=== PATIENT | male | born 1985 | race Caucasian/White ===

== ENCOUNTER → 2016-08-22 | Outpatient (CLI) | payer BC, SELFPAY ==
--- NOTE | 2016-08-22 10:03 | RAD ---
EXAM DESCRIPTION: Abdomen radiography. CLINICAL HISTORY: Abdominal pain. COMPARISON: None. TECHNIQUE: Two views. FINDINGS: Bowel gas pattern is non-obstructed. There is no obvious free intraperitoneal air. Visualized segments of the abdominal organs are unremarkable. No suspicious bone lesion or fracture is seen. IMPRESSION: No significant abnormality. Electronically signed by: Ulysses Beaver MD 08/22/2016 10:02
--- NOTE | 2016-08-22 10:05 | RAD ---
EXAM DESCRIPTION: XR CHEST 2 VIEWS CLINICAL HISTORY: REFLUX COMPARISON: None Available. TECHNIQUE: PA/lateral FINDINGS: There is no cardiac or pulmonary abnormality. The lungs are clear. There is no effusion. IMPRESSION: No acute findings on today's study. Electronically signed by: Ulysses Beaver MD 08/22/2016 10:03
== END ==
LOC: RAD 08:10
PROVIDERS: ATTEND Nurse Practitioner Family
DX: R11.10 Vomiting, unspecified (principal); K21.0 Gastro-esophageal reflux disease with esophagitis

== ENCOUNTER → 2016-08-24 | Outpatient (CLI) | payer BC ==
--- NOTE | 2016-08-24 11:36 | US ---
EXAM DESCRIPTION: US GALLBLADDER CLINICAL HISTORY: ABDOMINAL PAIN COMPARISON: AP supine abdomen dated 22 August 2016. TECHNIQUE: Right upper quadrant ultrasound FINDINGS: Hepatic steatosis is observed. No focal mass is identified There is no intrahepatic bile duct dilatation. The common bile duct measures 4.7mm. The gallbladder is normal and contains no stones. The pancreas has a normal appearance. The upper abdominal aorta and the inferior vena cava are unremarkable. The right kidney is normal in size, shape, and echotexture. IMPRESSION: Hepatic steatosis otherwise unremarkable gallbladder sonography. Electronically signed by: Owen Jackson MD 08/24/2016 11:35
== END ==
LOC: US 08:34
PROVIDERS: ATTEND Emergency Medicine
DX: R10.9 Unspecified abdominal pain (principal); K76.0 Fatty (change of) liver, not elsewhere classified

== ENCOUNTER → 2016-10-20 | Outpatient (CLI) | payer BC ==
--- NOTE | 2016-10-20 09:54 | CT ---
EXAM DESCRIPTION: Abdomen/Pelvis w/wo Contrast CLINICAL HISTORY: ABDOMINAL PAIN COMPARISON: None. TECHNIQUE: CT of the abdomen and pelvis was performed prior to and after the administration of IV contrast.. Multiple axial images and multiplanar reconstructions were generated. FINDINGS: Lung bases: The visualized lung bases are clear. Solid organs: The liver, spleen, pancreas, kidneys, and adrenal glands are normal. Gastrointestinal: The stomach, small intestine, and large intestine are normal. Gallbladder is unremarkable. The appendix is normal. No free fluid or free air. Vascular: Normal. Lymph nodes: Mediastinal lymph nodes along with groundglass within the mesentery noted. Musculoskeletal and soft tissues: No destructive osseous lesions are present. Urinary bladder and pelvic organs: The urinary bladder is normal. IMPRESSION: 1. Today's exam demonstrates Kerry changes within the mesentery along with a few prominent lymph nodes. While this can be a normal variant it can also be associated with mesenteric adenitis and significantly less likely, lymphoma. Recommend six month follow-up to help establish stability of these likely benign lymph nodes. Electronically signed by: Ulysses Beaver MD 10/20/2016 9:53 AM CDT
--- NOTE | 2016-10-20 11:54 | NM ---
EXAM DESCRIPTION: Nuclear medicine-Hepatobiliary w/CCK CLINICAL HISTORY: ABDOMINAL PAIN COMPARISON: None Available. RADIOPHARMACEUTICAL: 7.0 mCi technetium 99 M mebrofenin IV FINDINGS: There is prompt appropriate accumulation of the radiopharmaceutical by the liver with excretion into the biliary ductal system, gallbladder, and small bowel in and appropriate time frame. Gallbladder ejection fraction is assessed over 30 min time period following fatty meal ingestion and shows a gallbladder ejection fraction of 78%. IMPRESSION: Normal hepatobiliary study and gallbladder ejection fraction Electronically signed by: Marck Olivarez MD 10/20/2016 11:53 AM CDT
== END | disposition home or self-care (01) ==
LOC: NM 07:15
PROVIDERS: ATTEND Emergency Medicine
DX: R10.9 Unspecified abdominal pain (principal)

== ENCOUNTER → 2017-03-13 | Outpatient (CLI) | payer BC | LOC: LAB.O 08:21 | DX: K21.9 Gastro-esophageal reflux disease without esophagitis (principal); E66.9 Obesity, unspecified ==

== ENCOUNTER → 2017-06-14 | Outpatient (CLI) | payer BC ==
--- NOTE | 2017-06-16 08:13 | RAD ---
EXAM DESCRIPTION: Thoracic Spine,AP Lateral CLINICAL HISTORY: 31 years Male, BACK PAIN COMPARISON: None. FINDINGS: Three views of the thoracic spine demonstrate normal alignment with preservation of vertebral and disc height. No destructive process or paraspinous mass is noted. Additional abnormalities are not apparent. IMPRESSION: Essentially normal dorsal spine three views. Electronically signed by: Vitaly Rouse MD 06/16/2017 8:12 AM STRUCTURAL MANAGER
== END | disposition home or self-care (01) ==
LOC: RAD 13:05
PROVIDERS: ATTEND Emergency Medicine
DX: M54.5 Low back pain (principal); M54.6 Pain in thoracic spine

== ENCOUNTER → 2017-06-26 | Outpatient (CLI) | payer BC ==
--- NOTE | 2017-06-27 15:50 | MRI ---
EXAM DESCRIPTION: Thoracic Spine w/o Contrast: MRI CLINICAL HISTORY: BACK PAIN COMPARISON: Thoracic spine radiographs 06/14/2017. TECHNIQUE: Multiplanar, multiple standard sequences, non contrast MRI, thoracic spine. FINDINGS: Left posterior T5-6 disc is desiccated and protruding 3 mm abutting the cord and the exiting left L5 nerve. Left paracentral near canal stenosis. Right posterior T4-5 disc bulge and spur encroaching on the right foramen and abutting the right T4 nerve. Desiccation of the T7-8 and T8-9 discs with posterior midline bulge abutting the cord. Annular fissure in the T8-9 disc. Disc desiccation T10-11 disc with posterior midline bulge abutting the cord. No significant foraminal or canal stenosis. Remaining discs are unremarkable. Schmorl's nodes in the endplates from T5-6 to T8-9. Normal marrow signal in the vertebral bodies and the posterior elements. Minimal anterior wedging at T10. No abnormal marrow edema in the vertebral body or posterior elements. Remaining discs demonstrate normal signal. Disc spaces are preserved. Canal and foramina are patent. No scoliosis. Facet joints are unremarkable. Conus termination level not on the study. Paravertebral soft tissues are unremarkable. Normal marrow signal in the vertebral bodies and the posterior elements. Vertebral bodies are not compressed at any level. IMPRESSION: 1. Left posterior protrusion T5-6 disc abutting the exiting left T5 nerve. 2. Right posterior disc protrusion or endplate spurs at L4-5 abutting the exiting right T4 nerve. 3. Desiccation and bulging at T7-8 and T8-9 and T10-11 discs. Annular fissure at T8-9. These discs are abutting the cord. Electronically signed by: Gilbert Quinn MD 06/27/2017 3:49 PM [facility]
== END ==
LOC: MRI 14:00
PROVIDERS: ATTEND Emergency Medicine
DX: M51.24 Other intervertebral disc displacement, thoracic region (principal)

== ENCOUNTER 2017-07-17 15:06 | Emergency (ER) | payer BC ==
[2017-07-17 15:30] VITALS: TEMP 99
[2017-07-17] MEDS ORDERED: SODIUM CHLORIDE 0.9% 1000ML 1,000 ML IVS ONE (15:32)
--- NOTE | 2017-07-17 15:37 | ED.PDOC ---
History of Present Illness - General Chief Complaint: Abdominal Pain Stated Complaint: abdominal pain Time Seen by Provider: 07/17/17 15:27 Information Source: patient Exam Limitations: no limitations - History of Present Illness Initial Comments: Duarte Villela 31 y/o male stated that he had onset of sharp luq pain about an hour ago and felt dry heaving ate lunch this afternoon no hematuria or dysuria, no hematemesis,no blood in stool. Abdominal Pain Onset Location: LUQ Pain Radiation: no radiation Quality: sharpness Timing/Duration: 1-3 hours Improving Factors: nothing Worsening Factors: nothing Associated Symptoms: other - see hpi Review of Systems - Review of Systems Constitutional: States: no symptoms reported EENTM: States: no symptoms reported Respiratory: States: no symptoms reported Cardiology: States: no symptoms reported Gastrointestinal/Abdominal: States: abdominal pain Genitourinary: States: no symptoms reported Musculoskeletal: States: no symptoms reported All other Systems: Reviewed and Negative, No Change from Baseline Past Medical History (General) - Patient Medical History Hx Gastroesophageal Reflux: Yes Surgical History: other - gastric fundoplication - Vaccination History Hx Tetanus, Diphtheria Vaccination: No Hx Influenza Vaccination: No Hx Pneumococcal Vaccination: No - Social History Hx Tobacco Use: No Hx Alcohol Use: No Hx Substance Use: No Hx Substance Use Treatment: No Hx Depression: No Family Medical History - Family History Mother Hx Family Diabetes: Yes - multiple family members Physical Exam - Physical Exam General Appearance: Alert, Comfortable, No apparent distress Eyes, Ears, Nose, Throat Exam: PERRL/EOMI, normal ENT inspection Neck: non-tender, full range of motion, supple Respiratory: chest non-tender, lungs clear, normal breath sounds Cardiovascular/Chest: normal peripheral pulses, regular rate, rhythm, no edema, no murmur Peripheral Pulses: No deficit Gastrointestinal/Abdominal: normal bowel sounds, soft, no organomegaly, tenderness - luq no peritoneal signs Male Genitalia: no hernia Back Exam: no CVA tenderness, no vertebral tenderness Extremity: normal range of motion, non-tender, normal inspection, no pedal edema Progress - Progress Progress: 07/17/17 17:25 Last Vital Signs Temp 99.0 F 07/17/17 15:27 Pulse 72 07/17/17 15:27 Resp 20 07/17/17 15:27 BP 160/101 07/17/17 15:27 Pulse Ox 95 07/17/17 15:27 - Results/Orders Results/Orders: Laboratory Tests 07/17/17 07/17/17 07/17/17 15:41 15:41 16:50 WBC 15.4 H RBC 5.74 Hgb 16.4 Hct 48.6 MCV 84.8 MCH 28.6 MCHC 33.7 RDW 14.3 Plt Count 304 MPV 7.7 Absolute Neuts (auto) 11.00 H Absolute Lymphs (auto) 3.20 Absolute Monos (auto) 0.80 Absolute Eos (auto) 0.30 Absolute Basos (auto) 0.20 H Neutrophils % 71.3 Lymphocytes % 20.5 Monocytes % 5.1 Eosinophils % 1.7 Basophils % 1.4 Sodium 142 Potassium 3.9 Chloride 104 Carbon Dioxide 28 Anion Gap 13.9 BUN 13 Creatinine 0.98 BUN/Creatinine Ratio 13.3 Random Glucose 108 H Serum Osmolality 283.8 Calcium 8.8 Total Bilirubin 0.3 AST 24 ALT 34 Alkaline Phosphatase 94 Serum Total Protein 7.1 Albumin 3.9 Globulin 3.2 Albumin/Globulin Ratio 1.2 Lipase 38 Urine Color Yellow Urine Appearance Clear Urine pH 6.0 Ur Specific [place] 1.010 Urine Protein Negative Urine Glucose (UA) Negative Urine Ketones Negative Urine Blood Negative Urine Nitrite Negative Urine Bilirubin Negative Urine Urobilinogen 0.2 Ur Leukocyte Esterase Negative Urine RBC 0-1 Urine WBC 0 Ur Epithelial Cells 0 Urine Bacteria 0 - EKG/XRAY/CT XRAY: chest - no acute abnormalities CT Ordered: Yes - abd /pelvis no acute findings Departure - Departure Clinical Impression: Abdominal pain Qualifiers: Abdominal location: left upper quadrant Qualified Code(s): R10.12 - Left upper quadrant pain Time of Disposition: 17:27 Disposition: Discharge to Home or Self Care Departure Forms: ED Discharge - Pt. Copy, Patient Portal Self Enrollment Instructions: DI for Abdominal Pain-Adult Diet: other - AVOID GREASY SPICY FOODS UNTIL BETTER Referrals: JUSTINA LORD [Primary Care Provider] - 1-2 Weeks Prescriptions: Promethazine W/Codeine Syr [Phenergan With Codeine Syrup] 10 ml PO Q6HRS PRN # 120 ml PRN Reason: Pain Home Medications: Ambulatory Orders Promethazine W/Codeine Syr [Phenergan With Codeine Syrup] 10 ml PO Q6HRS PRN # 120 ml 07/17/17
--- NOTE | 2017-07-17 16:03 | RAD ---
EXAM DESCRIPTION: Abdomen Flat Upright CLINICAL HISTORY: 31 years Male, pain COMPARISON: None. FINDINGS: Supine and erect views of the abdomen demonstrate a normal bowel gas pattern. A small air-fluid level within the stomach is noted. The lung bases are clear. No unusual calculi or soft tissue masses are seen. The bony spine and pelvis are unremarkable. IMPRESSION: Normal abdomen two views. Electronically signed by: Vitaly Rouse MD 07/17/2017 4:02 PM SEAPORT PLANNING MANAGER
--- NOTE | 2017-07-17 16:04 | RAD ---
EXAM DESCRIPTION: Chest,1 View CLINICAL HISTORY: 31 years Male, pain COMPARISON: None. TECHNIQUE: AP portable chest. FINDINGS: Fair expansion of the lungs is evident without consolidation, layering effusion, or large mass. Heart size and vascularity appear normal for AP technique and degree of inspiration. No gross bony, hilar, or mediastinal abnormalities are noted. IMPRESSION: Normal chest, one view Electronically signed by: Vitaly Rouse MD 07/17/2017 4:02 PM ENAMEL DIPPER
--- NOTE | 2017-07-17 17:12 | CT ---
PROCEDURE: Abdomen/Pelvis w/Contrast HISTORY: pain Indication: Same as above Comparison: 10/20/2016 . Technique: CT of the abdomen and pelvis was done with intravenous contrast. Images were obtained from the lung base to the level of the pubic symphysis in axial plane, followed by orthogonal sagittal and coronal reconstruction. Oral contrast was not given for the study. The patient was injected with contrast intravenously, without any documented immediate adverse reactions. This exam was performed according to our departmental dose-optimization program, which includes automated exposure control, adjustment of the mA and/or KV according to the patient's size and/or use of iterative reconstruction technique. FINDINGS: Images through the lung bases do not show any focal infiltrates or pleural effusions. The liver, gallbladder, pancreas, spleen and the bilateral adrenal glands appear unremarkable. The bilateral kidneys enhance with contrast in a normal fashion. The urinary bladder is unremarkable . The bilateral ureters and the bilateral periureteral soft tissues and fat planes are unremarkable. Note is again made of stable benign panniculitis in the root of the mesentery The small bowel appears unremarkable, without any evidence of small bowel obstruction or bowel wall thickening. There is no CT evidence of acute appendicitis, pericecal inflammatory change or ileocecal mesenteric adenitis. The ileocecal junction appears unremarkable. There is no CT evidence of acute colonic diverticulitis or colitis or large bowel obstruction. The splenic and portal veins are of normal caliber, without any filling defects. There is no pathological lymphadenopathy in the retroperitoneum or in the pelvic region. There is no evidence of free fluid or free air in the abdomen or the pelvic region. There is no clinically significant abdominal aortic aneurysm. There is no clinically significant inguinal or ventral hernia. The visualized lumbar spine shows minimal degenerative change . The paravertebral soft tissues are unremarkable. The remainder of the pelvic structures are unremarkable. IMPRESSION: There are no acute or significant findings on the current study. Location of Interpretation: Teleradiology Electronically signed by: Fabrice Salomon MD 07/17/2017 5:11 PM [facility] Workstation: [id number] [place] (MCTAS: [place])
[2017-07-17 18:02] VITALS: BP 146/93; O2SAT 96
== END 2017-07-17 17:52 | disposition home or self-care (01) ==
LOC: ER 15:06
DX: R10.12 Left upper quadrant pain (principal); K21.9 Gastro-esophageal reflux disease without esophagitis
CPT/HCPCS: 36415; 71010; 74010; 74177; 80053; 81001; 83690; 85025; J7030

== ENCOUNTER 2017-10-25 05:45 | Day surgery (SDC) | payer BC ==
[2017-10-25] MEDS ORDERED: LACTATED RINGERS 1,000 ML ONE (06:08)
[2017-10-25 08:31] VITALS: BP 112/70; TEMP 96; O2SAT 94
--- NOTE | 2017-10-25 08:31 | OP ---
DATE OF PROCEDURE: 10/25/17 PREOPERATIVE DIAGNOSIS: 1. Right lower quadrant pain. 2. Change in bowel habits. POSTOPERATIVE DIAGNOSIS: 1. Normal colonoscopy. PROCEDURE: 1. Colonoscopy. SURGEON: Basim Collier MD. ANESTHESIA: MAC. PROCEDURE: Informed consent was obtained prior to sedation. The preprocedure cardiopulmonary assessment was satisfactory. The patient was placed in the left lateral decubitus position and was sedated by the Anesthesia Team. The tip of the Olympus colonoscope was inserted in the rectum and guided through the entire colon under direct visualization. The ileocecal valve and appendiceal orifice appeared normal. The terminal ileum appeared normal. Slow withdrawal was started at this time. Colonoscopy prep was good. The colon appeared normal. Retroflexion view of the anorectal area showed no abnormality. The scope was then withdrawn from the patient and the procedure was terminated. COMPLICATIONS: None. ESTIMATED BLOOD LOSS: Zero. RECOMMENDATION: 1. Amitiza 8 mcg p.o. b.i.d. 2. Aggressive weight loss. 3. Watch for complications like bleeding, infection, fever, abdominal pain or other and attend the Emergency Room immediately. 4. Followup in my office in 4 weeks. #[id number] MTDRodriguez
[2017-10-25] MEDS ORDERED: PROPOFOL 200 MG/20 ML VIAL IV ONE (10:00)
[2017-10-25] MEDS ORDERED: LIDOCAINE 1% 10 ML VIAL INJ ONE (10:00)
== END 2017-10-25 08:55 | disposition home or self-care (01) ==
LOC: AMB 05:45
DX: R10.31 Right lower quadrant pain (principal); R19.4 Change in bowel habit; K21.9 Gastro-esophageal reflux disease without esophagitis; E66.9 Obesity, unspecified; Z68.35 Body mass index [BMI] 35.0-35.9, adult; Z79.899 Other long term (current) drug therapy
CPT/HCPCS: 00812; 45378; J3490; J7120

== ENCOUNTER → 2017-10-25 | Outpatient (CLI) | payer BC ==
--- NOTE | 2017-10-25 17:54 | US ---
Procedure: US ABDOMEN Exam Date: 10/25/2017 Ordering Provider: EDNA AMBRIZ Clinical Indication: RIGHT LOWER QUADRANT PAIN Comparison: 07/17/2017 CT abdomen pelvis Technique: Real-time ultrasonography was obtained over the abdominal viscera and medical claims representative images were recorded. Findings: The liver is normal in size and contour. There is diffuse increased echogenicity of the liver consistent with fatty infiltration. There are no intrahepatic masses. There is no intrahepatic ductal dilatation. The gallbladder is normal in size and appearance. There are no gallstones. There is no gallbladder wall thickening or pericholecystic fluid. The extrahepatic common duct is normal in size measuring 5.7 mm. The spleen is normal in size and contour. There is normal internal echogenicity of the spleen. There are no splenic masses. The visualized portions of the pancreas are normal. The aorta has a normal appearance. The right kidney is normal in size and contour. The right kidney measures 11.5 cm in bipolar length. Cortical thickness and echogenicity are normal. There are no masses, calculi, or hydronephrosis. The left kidney is normal in size and contour. The left kidney measures 12.0 cm in bipolar length. Cortical thickness and echogenicity are normal. There are no masses, calculi, or hydronephrosis. There is no ascites. Impression: 1. Hepatic steatosis, otherwise unremarkable exam. Electronically signed by: Duarte Renee MD 10/25/2017 5:51 PM CDT
== END ==
LOC: RAD 11:26
DX: K21.9 Gastro-esophageal reflux disease without esophagitis (principal); R10.12 Left upper quadrant pain; R10.31 Right lower quadrant pain; E66.9 Obesity, unspecified

== ENCOUNTER 2017-11-22 22:17 | Emergency (ER) | payer BC ==
[2017-11-22] MEDS ORDERED: ALUM & MAG HYDROX-SIMETHICONE 30 ML, LIDOCAINE VISCOUS 2% 15 ML PO ONE ×2 (22:33)
[2017-11-22 22:34] VITALS: TEMP 98.8
[2017-11-22] MEDS ORDERED: LIDOCAINE HCL 2% (MOUTH-THROAT) 15 ML UD ONE (22:56)
[2017-11-22] MEDS ORDERED: ALUM & MAG HYDROX-SIMETHICONE 30 ML UD ONE (22:56)
--- NOTE | 2017-11-22 23:20 | RAD ---
PROCEDURE: Abdomen Series Clinical History: acute sinus tachycardia Indication: Same as above Comparison: None Technique: 3.0 views of the abdomen and pelvis were done. In addition a single frontal view of the chest was done Findings: There is no gross evidence of free air in the abdomen or the pelvis . There are no discrete airspace infiltrates and pneumothoraces or pleural effusions. The cardiac mediastinal silhouette is unremarkable The small and large bowel gas pattern does not show any evidence of obstruction, ileus or bowel wall thickening. There is no visualization of radiopaque calculi in the outline of the urinary tract. There is mild constipation. Impression: There is mild constipation. There are no acute or significant findings in the chest Location of Interpretation: [id number] Electronically signed by: Fabrice Salomon MD 11/22/2017 11:19 PM CDT Workstation: [id number]
[2017-11-22] MEDS ORDERED: METOPROLOL TARTRATE 25 MG TAB PO ONE (23:45)
[2017-11-23] MEDS ORDERED: HYDROcodone 10MG/APAP 325MG 1 EA TAB PO ONE (00:25)
--- NOTE | 2017-11-23 00:29 | ED.PDOC ---
History of Present Illness - General Chief Complaint: Cardiovascular Problem Stated Complaint: heart racing Time Seen by Provider: 11/22/17 22:20 Source: patient Exam Limitations: no limitations - History of Present Illness Initial Comments: the patient is a 32-year-old male presenting to the emergency room secondary to a feeling of his heart racing a little bit. This started a couple of hours prior to arrival. He reports that he was sitting still when he noticed it first. He has not had any chest pain or shortness of breath. He reports at one point he had some very mild diaphoresis. Unusual things about today include that he had an epidural steroid injection with his chronic pain management doctor earlier in the day. Additionally he has taken one last dose of his hydrocodone that he normally does. He is not having any abdominal pain. Again no chest pain or shortness of breath. No leg pain. No swelling. No new back pain. No altered mental status. No weakness in his extremities. no headache fever or chills. No sore throat. No nausea or vomiting. No diarrhea. No runny nose.upon his arrival here he is in sinus tachycardia with a rate ranging from 115 bpm to 135 bpm. I do not have previous vital signs to compare to on this patient to know if this is unusual. No evidence of any other arrhythmia on telemetry monitoring. the patient does report that ever since he has had his 2 abdominal surgeries he has maintained a elevated white blood cell count. White blood cell count today is 12,000 which is apparently not unusual for him.he denies use of any stimulants. Timing/Duration: 1-3 hours Severity: mild Improving Factors: nothing Worsening Factors: nothing Associated Symptoms: diaphoresis Allergies/Adverse Reactions: Allergies NO KNOWN ALLERGY Allergy (Verified 07/17/17 15:30) Home Medications: Ambulatory Orders Cyclobenzaprine HCl [Flexeril] 5 mg PO PRN PRN 09/19/17 HYDROcodone 10MG/APAP 325MG [Anderson 10/325] 1 tablet PRN PRN 09/19/17 Review of Systems - Review of Systems Constitutional: States: diaphoresis - brief EENTM: States: no symptoms reported Respiratory: States: no symptoms reported Cardiology: States: palpitations. Denies: chest pain, edema, syncope Gastrointestinal/Abdominal: States: no symptoms reported Genitourinary: States: no symptoms reported Musculoskeletal: States: no symptoms reported Skin: States: no symptoms reported Neurological: States: no symptoms reported Endocrine: States: no symptoms reported All other Systems: No Change from Baseline Past Medical History (General) - Patient Medical History Hx Congestive Heart Failure: No Hx Hypertension: Yes Hx Diabetes: No Hx Gastroesophageal Reflux: Yes Hx MRSA: No - Vaccination History Hx Tetanus, Diphtheria Vaccination: No Hx Influenza Vaccination: No Hx Pneumococcal Vaccination: No Immunizations Up to Date: No - Social History Hx Tobacco Use: No Hx Alcohol Use: No Hx Substance Use: No Hx Substance Use Treatment: No Hx Depression: No Feels Threatened In Home Enviroment: No Feels Threatened In a Relationship: No Hx Physical Abuse: No Hx Emotional Abuse: No Hx Suspected Abuse: No - Female History Patient is a Female of Child Bearing Age (10 -59 yrs old): No Family Medical History - Family History Mother Family History: Unknown Hx Family Diabetes: Yes - multiple family members Physical Exam - Physical Exam General Appearance: Alert, Comfortable, No apparent distress Eye Exam: bilateral normal Ears, Nose, Throat: hearing grossly normal, normal ENT inspection, normal pharynx Neck: full range of motion, supple, normal inspection Respiratory: lungs clear, normal breath sounds, no respiratory distress, no accessory muscle use Cardiovascular/Chest: normal peripheral pulses, no edema, tachycardia Peripheral Pulses: radial,right: 2+, radial,left: 2+, dorsalis pedis,right: 2+, dorsalis pedis,left: 2+ Gastrointestinal/Abdominal: non tender, soft Rectal Exam: deferred Back Exam: normal inspection, no CVA tenderness, no vertebral tenderness Extremity: normal range of motion, non-tender, normal inspection, no pedal edema , normal capillary refill Neurologic: student counsellor II-XII nml as tested, no motor/sensory deficits, alert, normal mood/affect, oriented x 3 Skin Exam: normal color Comments: Vital Signs - 24 hr 11/22/17 11/22/17 11/23/17 22:28 22:35 00:21 Temperature 98.8 F Pulse Rate 119 H Pulse Rate [ 122 H 108 H Left Brachial] Respiratory 16 16 Rate Blood Pressure 145/79 135/82 [Left Arm] O2 Sat by Pulse 97 98 Oximetry Progress - Progress Progress: 11/23/17 00:34 the patient is a 32-year-old male presenting with what appears to be an idiopathic episode of sinus tachycardia. This may possibly be related to his epidural steroid injection that he received earlier in the day. He also may be having some mild withdrawal from the hydrocodone. There are certainly other causes that may give a sinus tachycardia however, and they may make themselves evident in the coming days with a change in symptoms. The patient is to follow-up with his primary care doctor before the weekend for reevaluation. He needs to keep himself well-hydrated. He needs to remain compliant with his routine medications as per his primary care doctor. ER warnings were given. - Results/Orders Results/Orders: EKG shows mild sinus tachycardia at a rate of 117 bpm. There is a T-wave inversion in lead 3 only. He has borderline poor R-wave progression in anterior leads. There is mild left atrial dilation. Normal QT interval. Otherwise normal EKG. Laboratory Results - last 24 hr 11/22/17 11/22/17 11/22/17 22:40 22:40 22:40 WBC 12.1 H RBC 5.77 Hgb 17.2 Hct 50.6 MCV 87.7 MCH 29.8 MCHC 33.9 RDW 13.3 Plt Count 358 MPV 8.0 Absolute Neuts (auto) 10.80 H Absolute Lymphs (auto) 1.20 Absolute Monos (auto) 0.20 Absolute Eos (auto) 0.00 Absolute Basos (auto) 0.00 Neutrophils % 88.9 H Lymphocytes % 9.5 L Monocytes % 1.4 L Eosinophils % 0.0 L Basophils % 0.2 PT 11.7 INR 1.010 PTT (SP) 34.8 D-Dimer, Quantitative < 230 Sodium 136 Potassium 4.1 Chloride 103 Carbon Dioxide 24 Anion Gap 13.1 BUN 15 Creatinine 1.07 BUN/Creatinine Ratio 14.0 Random Glucose 156 H Serum Osmolality 276.0 Lactic Acid Calcium 9.6 Magnesium 1.7 L Total Bilirubin 0.5 AST 31 ALT 45 Alkaline Phosphatase 77 Creatine Kinase 91 CK-MB (CK-2) 1.3 CK-MB (CK-2) % Not Reportable Troponin I < 0.02 B-Natriuretic Peptide < 5.0 Serum Total Protein 7.7 Albumin 4.3 Globulin 3.4 Albumin/Globulin Ratio 1.3 Amylase 66 Lipase 34 TSH 1.11 11/22/17 22:58 WBC RBC Hgb Hct MCV MCH MCHC RDW Plt Count MPV Absolute Neuts (auto) Absolute Lymphs (auto) Absolute Monos (auto) Absolute Eos (auto) Absolute Basos (auto) Neutrophils % Lymphocytes % Monocytes % Eosinophils % Basophils % PT INR PTT (SP) D-Dimer, Quantitative Sodium Potassium Chloride Carbon Dioxide Anion Gap BUN Creatinine BUN/Creatinine Ratio Random Glucose Serum Osmolality Lactic Acid 2.6 H* Calcium Magnesium Total Bilirubin AST ALT Alkaline Phosphatase Creatine Kinase CK-MB (CK-2) CK-MB (CK-2) % Troponin I B-Natriuretic Peptide Serum Total Protein Albumin Globulin Albumin/Globulin Ratio Amylase Lipase TSH The acute abdominal series shows no obvious pathology of the chest or the abdomen. No free air. Departure - Departure Clinical Impression: Sinus tachycardia Disposition: Discharge to Home or Self Care Condition: Good Departure Forms: ED Discharge - Pt. Copy, Patient Portal Self Enrollment Instructions: DI for Tachycardia Diet: bland diet Activity: increase activity as tolerated Referrals: JUSTINA LORD [Primary Care Provider] - 1-2 Days Home Medications: Ambulatory Orders Cyclobenzaprine HCl [Flexeril] 5 mg PO PRN PRN 09/19/17 HYDROcodone 10MG/APAP 325MG [Anderson 10/325] 1 tablet PRN PRN 09/19/17 Additional Instructions: the patient is a 32-year-old male presenting with what appears to be an idiopathic episode of sinus tachycardia. This may possibly be related to his epidural steroid injection that he received earlier in the day. He also may be having some mild withdrawal from the hydrocodone. There are certainly other causes that may give a sinus tachycardia however, and they may make themselves evident in the coming days with a change in symptoms. The patient is to follow-up with his primary care doctor before the weekend for reevaluation. He needs to keep himself well-hydrated. He needs to remain compliant with his routine medications as per his primary care doctor. ER warnings were given.
[2017-11-23 01:29] VITALS: BP 118/73; O2SAT 96
== END 2017-11-23 01:15 | disposition home or self-care (01) ==
LOC: ER 22:17
DX: R00.0 Tachycardia, unspecified (principal); I10 Essential (primary) hypertension; K21.9 Gastro-esophageal reflux disease without esophagitis; Z79.899 Other long term (current) drug therapy

== ENCOUNTER → 2018-04-24 | Outpatient (CLI) | payer BC ==
--- NOTE | 2018-04-24 17:28 | CT ---
EXAM DESCRIPTION: Abdomen/Pelvis w/Contrast CLINICAL HISTORY: 32 years Male, LUQ PAIN R/O STRANGULATED HERNIA COMPARISON: 17 July 2017 TECHNIQUE: Transaxial images were obtained with intravenous contrast medium without oral contrast media. Sagittal and coronal reconstruction was performed.This exam was performed according to our departmental dose-optimization program, which includes automated exposure control, adjustment of the mA and/or kV according to patient size and/or use of iterative reconstruction technique. FINDINGS: The lung bases are clear. The liver and spleen are normal in appearance. No biliary ductal dilatation is observed. The gallbladder is normal in appearance. No adrenal masses are detected. The pancreas is normal in appearance. Imaging of the kidneys reveals no evidence of hydronephrosis mass cyst or calcification. Small hiatus hernia is observed. The appendix is identified and is normal in appearance. No free fluid is observed. No inguinal region abnormality is detected. Mild degenerative changes are observed in the upper lumbar spine. No bowel abnormality is seen. IMPRESSION: A small hiatus hernia is observed. The exam is otherwise normal. Electronically signed by: Owen Jackson MD 04/24/2018 5:26 PM CDT
== END ==
LOC: CT 16:32
PROVIDERS: ATTEND Nurse Practitioner Family
DX: R10.12 Left upper quadrant pain (principal); K44.9 Diaphragmatic hernia without obstruction or gangrene

== ENCOUNTER → 2018-05-18 | Outpatient (CLI) | payer BC | LOC: LAB.O 16:12 | PROVIDERS: ATTEND Specialist | DX: M99.32 Osseous stenosis of neural canal of thoracic region (principal); M47.14 Other spondylosis with myelopathy, thoracic region; M54.5 Low back pain; M54.2 Cervicalgia ==

== ENCOUNTER → 2019-01-01 | Outpatient (CLI) | payer BC ==
--- NOTE | 2019-01-01 15:11 | US ---
EXAM DESCRIPTION: Gall Bladder: ULTRASOUND. CLINICAL HISTORY: UPPER QUADRANT PAIN RIGHT COMPARISON: CT abdomen and pelvis with contrast 04/24/2018. TECHNIQUE: Transabdominal scanning: Keller-scale and Doppler modes. FINDINGS: Gallbladder: normal size, shape, echogenicity; no intraluminal stones or sludge. No fluid around the gallbladder. No wall thickening. 2.3 mm Non-tender with transducer pressure. Common bile duct: caliber 4.7 mm within normal limits. Liver: normal echogenicity; contour liver capsule smooth where seen. No fluid around the liver. Intrahepatic biliary ducts normal caliber. Doppler hepatopedal flow portal vein.. Long axis right lobe 15.8 Pancreas: normal size and echogenicity. Duct not seen. Aorta: Not well seen. Right kidney: 9.9 cm long axis. Normal cortical thickness and echogenicity. No hydronephrosis, echogenic stones, or perirenal fluid. IMPRESSION: 1. Fatty liver but not enlarged. Normal ducts and direction of vascular flow. Smooth capsule with no ascites. 2. Gallbladder, pancreas, and right kidney unremarkable. Normal caliber common bile duct. Electronically signed by: Gilbert Quinn MD 01/01/2019 3:09 PM CDT
== END ==
LOC: US 08:00
PROVIDERS: ATTEND Emergency Medicine
DX: K76.0 Fatty (change of) liver, not elsewhere classified (principal)

== ENCOUNTER → 2019-01-07 | Outpatient (CLI) | payer BC | LOC: SL 20:17 | PROVIDERS: ATTEND Emergency Medicine | DX: G47.33 Obstructive sleep apnea (adult) (pediatric) (principal) ==

== ENCOUNTER → 2019-02-22 | Outpatient (CLI) | payer BC ==
--- NOTE | 2019-02-22 17:22 | MRI ---
EXAM DESCRIPTION: Brain w/o Contrast: MRI. CLINICAL HISTORY: OCCIPITAL HEADACHE COMPARISON: None. TECHNIQUE: Multiplanar, high-field MRI unit, multiple diffusion sequences, multiple conventional sequences without contrast. FINDINGS: Normal FLAIR and T2-weighted signal in the periventricular white matter and collins-white matter junctions of the cerebral hemispheres. . No hemorrhage, no cerebral edema, no mass-effect. Normal signal in the bilateral basal ganglia. Normal signal in the brainstem and cerebellar hemispheres. No hemorrhage, no parenchymal edema, no mass-effect. Concordance of the diffusion and non-diffusion sequences with no diffusion restriction. Cortical sulci, ventricles, and other CSF spaces, and the subdural spaces are normally configured for patients age. No effacement or displacement. No midline shift. No extra-axial hemorrhage. Normal flow signal void in the major vessels of the [place], and the venous sinuses. IACs are symmetric bilaterally. Normal signal in the bilateral mastoid air cells. No mass effect in the bilateral cerebellopontine angles. Pituitary gland occupies most of the sella. Base of the cerebellar tonsils is at the level of the foramen magnum. Paranasal sinuses are unremarkable. The bony calvarium is intact. IMPRESSION: Normal MRI scan of the brain without contrast with no intra-axial extra-axial hemorrhage, mass effect, cerebral edema, or midline shift. Normal contrast MRI diffusion scan of the brain with no evidence of acute or subacute significant ischemia or infarction. Electronically signed by: Gilbert Quinn MD 02/22/2019 5:20 PM CDT
== END ==
LOC: MRI 10:01
PROVIDERS: ATTEND Nurse Practitioner Family
DX: M99.3 Osseous stenosis of neural canal (principal); M50.322 Other cervical disc degeneration at C5-C6 level; M50.33 Other cervical disc degeneration, cervicothoracic region

== ENCOUNTER → 2019-02-27 | Outpatient (CLI) | payer BC ==
--- NOTE | 2019-02-28 09:16 | MRI ---
EXAM DESCRIPTION: Cervical Spine CLINICAL HISTORY: STENOSIS OF SPINAL CANAL. Pain back of neck and head. COMPARISON: None Available. TECHNIQUE: Multisequence multiplanar MRI of the cervical spine was performed without intravenous contrast. FINDINGS: The cervical spinal alignment is intact without significant listhesis. The vertebral body heights are relatively maintained. No displaced fracture or dislocation is seen. The cranial cervical junction is intact. Mild disc desiccation and intervertebral disc height loss is noted at C5-C6. The cervical cord is normal in caliber and signal intensity. C2-3: No central canal stenosis or neuroforaminal narrowing. C3-4: No central canal stenosis or neuroforaminal narrowing. C4-5: No central canal stenosis or neuroforaminal narrowing. C5-6: Minimal posterior disc osteophyte complex causes slight effacement of the ventral cord without significant central canal stenosis and mild right neuroforaminal narrowing. C6-7: No central canal stenosis or neuroforaminal narrowing. C7-T1: Minimal posterior disc osteophyte complex (eccentric towards the right foraminal zone) with no significant central canal stenosis and mild right neural foraminal narrowing. The visualized soft tissues are within normal limit without focal muscle strain or ligamentous edema. IMPRESSION: 1. Mild degenerative discogenic changes at C5-C6 and C7-T1. 2. No significant central canal stenosis or neural foraminal narrowing at any level. 3. Normal caliber and signal intensity of the cervical cord. Electronically signed by: Brady Beard DO 02/28/2019 9:15 AM CDT
== END ==
LOC: MRI 13:00
PROVIDERS: ATTEND Emergency Medicine
DX: M99.3 Osseous stenosis of neural canal (principal); M47.892 Other spondylosis, cervical region; M47.893 Other spondylosis, cervicothoracic region

== ENCOUNTER → 2019-06-22 | Outpatient (CLI) | payer BC | END | disposition home or self-care (01) | LOC: LAB.O 12:32 | PROVIDERS: ATTEND Emergency Medicine | DX: K52.9 Noninfective gastroenteritis and colitis, unspecified (principal) ==